=== PATIENT | female | born 1995 | race Hispanic/Latino ===

== ENCOUNTER 2020-08-02 09:29 | Outpatient (CLI) | payer OTHER ==
[2020-08-02 21:00] LABS: SARS-CoV-2 MS2 Positive; SARS-CoV-2 N Gene Negative; SARS-CoV-2 S Gene Negative; SARS-CoV-2 by NAA Not Detected (NotDetected); SARS-CoV-2 orf1ab Negative
== END 2020-08-02 09:30 | disposition home or self-care (01) ==
LOC: EDBD → LABBT 09:29
PROVIDERS: ATTEND Student in an Organized Health Care Education/Training Program
DX: Z01.812 Encounter for preprocedural laboratory examination (principal); Z20.828 Contact with and (suspected) exposure to other viral communicable diseases
CPT/HCPCS: 87635; U0003

== ENCOUNTER 2020-08-04 05:24 | Inpatient (IN) | payer OTHER, SELFPAY ==
[2020-08-04] MEDS ORDERED: hydrALAZINE 20 MG/ML VIAL SLOW IVP PRN ×2 (05:45→11:27)
[2020-08-04] MEDS ORDERED: Butorphanol Tartrate 1 MG/ML VIAL SLOW IVP PRN ×2 (05:45→20:15)
[2020-08-04] MEDS ORDERED: Bicitra 30 ML UDCUP PO PRN (05:45)
[2020-08-04] MEDS ORDERED: Promethazine HCl 25 MG/ML VIAL IM PRN ×3 (05:45→15:14)
[2020-08-04] MEDS ORDERED: Lactated Ringer's 1,000 ML IV SCH (05:45)
[2020-08-04] MEDS ORDERED: Acetaminophen 500 MG TAB PO PRN (05:45)
[2020-08-04] MEDS ORDERED: Ondansetron PF 4 MG/2 ML Vial IVP PRN ×4 (05:45→15:14)
[2020-08-04] MEDS ORDERED: Famotidine/PF 20 mg/2ml Vial SLOW IVP PRN (05:45)
[2020-08-04] MEDS ORDERED: CEFAZOLIN 2 GM in Premix Bag 1 BAG IVPB SCH (05:45)
[2020-08-04 06:16] VITALS: BMI 30.4
--- NOTE | 2020-08-04 06:52 | PDOC.FPROB ---
FMR OB H&P: HPI - History of Present Illness Chief Complaint: scheduled rLTCS for breech presentation at term Indentification: 25 yo at 39.5 wks by 8.4 wk sono History of Present Illness: Patient is a 25 yo at 39.5 wks by 8.4 wk sono who presents for scheduled repeat LTCS today. She is feeling well, no concerns this morning. She denies any vaginal bleeding/discharge, LOF, contractions, N/V, recent illness. Endorses FM. Is taking PNV and Pantoprazole. Primary Care Physician: Sandhya FMR OB H&P: Current - Care : 2 Para: 1001 Gestational age: 39.5 weeks Due date: 08/06/2020 Dating Criteria: LMP c/w 8.4 wk sono - OB Labs Blood type: O RH: positive Antibody Screen: negative HIV: negative RPR: negative HepBsAg: negative Rubella: immune Quad screen: negative Urine drug screen: not done Gonorrhea: negative Chlamydia: negative Pap Smear: NILM 3 hour GTT: passed 2 hr (89/122/124) GBS: negative H&H: 12.8/36.3 on 06/07/2020 Platelets: 210 - First Trimester Ultrasound First trimester: dating U/S at 8.4 wks - Anatomy Survey Anatomy survey: MFM U/S shows isolated choroid plexus cyst and echogenic intracardiac focus, otherwise normal anatomy with no f/u ultrasound indicated FMR OB H&P: History - Past Medical History PMH: GERD - OB History OB History: pLTCS done in [place] in 2016, for failure to dilate - 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 - Family History Family History: Mother with HTN FMR OB H&P: Medications - Current Home Medications: Medication Instructions Recorded Confirmed Type Ondansetron [Ondansetron ODT] 4 mg PO Q6HR PRN 08/04/20 08/04/20 History Pantoprazole Sodium [Protonix] 40 mg PO DAILY 08/04/20 08/04/20 History 21/Iron Fu/Folic Acid 1 tablet PO DAILY 08/04/20 08/04/20 History [ Complete Caplet] Allergies/Adverse Reactions: Allergies Allergy/AdvReac Type Severity Reaction Status Date / Time No Known Allergies Allergy Verified 08/04/20 06:02 FMR OB H&P: ROS - Review of Systems General: denies: fever/chills, weight/appetite/sleep changes, fatigue Eyes: denies: vision changes ENT: denies: nasal congestion, sore throat Cardiovascular: denies: chest pain, palpitation, edema Respiratory: denies: cough, congestion, shortness of breath Gastrointestinal: reports: indigestion. denies: abdominal pain, nausea, vomiting, diarrhea, constipation Genitourinary (Female): reports: contractions. denies: dysuria, vaginal di scharge, vaginal pressure Musculoskeletal: denies: pain, swelling, decrease range of motion Neurologic: denies: numbness, weakness, headache Integumentary: denies: itching, rash Breast: denies: skin changes Hematologic/Lymphatic: denies: prolonged or excessive bleeding Psychological: denies: depression, anxiety FMR OB H&P: Vital Signs - Maternal Vital signs: Vital Signs - First Documented Temp Pulse Resp BP 98.8 F 95 18 124/80 08/04/20 05:45 08/04/20 05:45 08/04/20 05:45 08/04/20 05:45 - Heart Tones Baseline: 140 Variability: moderate Acceleration: present Deceleration: absent Category: category 1 Shell contractions every: 5 min FMR OB H&P: Physical Exam - Physical Exam General: NAD, awake, alert and oriented HEENT: normocephalic and atraumatic, EOMI, MMM, conjunctiva clear, no scleral icterus, grossly normal vision, grossly normal hearing Neck: supple, FROM Chest: non-tender to palpation Heart: RRR, normal S1/S2, no murmurs/rubs/gallops, pulses present, no edema General: CTAB, no respiratory distress, good air movement, no wheezing Abdomen: soft, gravid, non-tender Musculoskeletal: normal gait and station, FROM in all four extremities Neurological: sensation to pain,touch and proprioception grossly normal, no focal deficit Skin: no rash, no jaundice Lymphatic: no unusual bruising or bleeding Psychiatric: intact recent and remote memory, normal mood and affect - Pelvic Exam Vulva: normal hair distribution, no lesions Membranes: intact Presentation: breech, confirmed by beside sono this morning FMR OB H&P: A/P - Problem List (1) Term Current Visit: Yes Status: Acute Code(s): Z34.90 - ENCNTR FOR SUPRVSN OF NORMAL , UNSP, UNSP TRIMESTER (2) History of delivery Current Visit: Yes Status: Acute Code(s): Z98.891 - HISTORY OF UTERINE SCAR FROM PREVIOUS SURGERY (3) Breech presentation of fetus Current Visit: Yes Status: Acute Code(s): O32.1XX0 - MATERNAL CARE FOR BREECH PRESENTATION, UNSP (4) GERD (gastroesophageal reflux disease) Current Visit: Yes Status: Acute Code(s): K21.9 - GASTRO-ESOPHAGEAL REFLUX DISEASE WITHOUT ESOPHAGITIS Disposition: 25 yo @ 39.5 wga presents for scheduled rLTCS: #Term -IOB labs reviewed: wnl, O pos -Pap NILM -genetic screen negative -Anatomy sono w/ [place] 22%. Results demonstrate EIF in LV, choroid plexus cyst in most dependent ventricle and unable to visualize least dependent ventricle. Was referred to [facility] from [facility] on 03/09. No follow up needed, follow up as clinically indicated -2T labs reviewed, GTT passed: 89/122/124 -tDAP 05/24, refused flu -3T labs reviewed, WNLs -Continue PNVs -GBS negative. #Hx of Previous C/S -primary, in [place] in 2016 -Male at 40.0 weeks, scheduled because she was not dilated. Baby was not breech. BW 3.6kg, 53cm. No complications during that c/s #Hx of tobacco use -Previously smoked 1 cig/day, <1 year duration, quit in Sep 2019. #FHx of HTN in mom #GERD -Resolved/Improved with Pantoprazole, may continue #Breech presentation -previously had [facility] discussion at [facility] with patient about options of ECV and induction for TOLAC with a closed cervix vs repeat . All questions answered. She agrees to repeat LTCS this morning Diet: NPO, ice chips okay VTE: low risk Code status: FULL Dispo: Stable, admitted to L&D in preparation for rLTCS this morning. Anticipate LOS >48 hours. Discussion: Date/Time: 08/04/20 0650 This H&P was discussed with Dr. No who agrees with the above documentation and plan. Signature: DO Reinaldo, PGY-2 Addendum - Attending - Attending Attestation Date/Time: 08/04/20 6497 I personally evaluated the patient and discussed the management with Dr. Sanchez I agree with the History, Examination, Assessment and Plan documented above with any addition or exceptions noted below- 25 yo @39.5 weeks here for scheduled repeat C/S due to breech presentation. Denies any complaints. Afebrile VSS. Cat 1 FHTs. Bedside USG confirms brooklynn breech presentation with head in RUQ and spine along maternal left side. A/P: 1) IUP @ 39.5 weeks plan to proceed with repeat C/S. Risks discussed with patient and consent signed.
[2020-08-04] MEDS ORDERED: Morphine PF 10 MG/10 ML VIAL ONE (07:07)
[2020-08-04] MEDS ORDERED: ePHEDrine 50 MG/ML VIAL ONE (07:08)
[2020-08-04] MEDS ORDERED: Oxytocin 10 UNITS/ML VIAL ONE ×2 (07:08→09:15)
[2020-08-04] MEDS ORDERED: Ondansetron PF 4 MG/2 ML Vial ONE (07:08)
[2020-08-04 07:21] LABS: Hemoglobin 12.4 g/dL (12.0-16.0); Mean Corpuscular Hemoglobin 30.3 pg (27.0-31.0); Mean Corpuscular Volume 86.6 fL (78.0-98.0); Mean Platelet Volume 9.9 fL (7.4-10.4); Platelet Count 146 thou/uL (130-400); RBC Distribution Width 12.4 % (11.5-14.5); White Blood Cell (WBC) Count 6.4 thou/uL (4.8-10.8)
[2020-08-04 07:28] LABS: HBSAg Index 0.22 S/CO (0-0.99); Hep B Surf Ag Non-Reactive S/CO (NonReactive)
[2020-08-04 07:55] LABS: Syphilis Antibody Nonreactive (Nonreactive); Syphilis Antibody Index 0.03 S/CO (<1.00 Non-Reactive)
[2020-08-04] MEDS ORDERED: Promethazine HCl 25 MG SUPP PR PRN (08:05)
[2020-08-04] MEDS ORDERED: diphenhydrAMINE 50 MG/ML VIAL IVP PRN ×2 (08:05→15:14)
[2020-08-04] MEDS ORDERED: Naloxone HCl 0.4 mg/ml Vial IV PRN ×2 (08:05→15:14)
[2020-08-04] MEDS ORDERED: L&D-Morphine 4 MG/ML VIAL SLOW IVP PRN (08:05)
[2020-08-04] MEDS ORDERED: HYDROmorphone 2 MG/ML VIAL SLOW IVP PRN (08:05)
[2020-08-04] MEDS ORDERED: Ondansetron HCl/PF 4 MG/2 ML Vial IVP PRN (08:05)
[2020-08-04] MEDS ORDERED: Meperidine HCl/PF 25 MG/ML VIAL SLOW IVP PRN (08:05)
[2020-08-04] MEDS ORDERED: Naloxone HCl 0.4 mg/ml Vial IVP PRN ×2 (08:05)
[2020-08-04] MEDS ORDERED: PROPOFOL 20 ML ONE (08:07)
[2020-08-04] MEDS ORDERED: Succinylcholine 200 MG/10 ml SYRINGE FS ONE (08:07)
[2020-08-04] MEDS ORDERED: Communication Order-Pharmacy FS SCH ×2 (08:15→15:15)
[2020-08-04] MEDS ORDERED: Ketorolac Tromethamine 30 MG/ML VIAL IVP SCH (08:15)
[2020-08-04] MEDS ORDERED: Fentanyl 100 MCG/2 ML VIAL ONE (09:01)
[2020-08-04] MEDS ORDERED: Ketorolac Tromethamine 30 MG/ML VIAL ONE (10:03)
[2020-08-04] MEDS: Ketorolac Tromethamine 30 MG/ML VIAL IVP PRN ×2 (10:04→20:06)
[2020-08-04] MEDS ORDERED: Meperidine HCl/PF 25 MG/ML VIAL ONE (10:04)
--- NOTE | 2020-08-04 10:33 | PDOC.OPDEL ---
OB Operative/Delivery Note Delivery Dr/Surgeon: Alexus Sanchez DO/Nilay Schneider DO/Sera No MD Pre-Delivery Diagnosis: breech, scheduled section Procedure/Post Delivery Dx: repeat low transverse CS Weeks gestation: 39 (39.5) Anesthesia: other (general) - Findings A Sex: female Weight: 3.642 kg - 1 min: 8 - 5 min: 8 - Additional Findings/Plan Placenta delivered: manual removal findings: low transverse hysterotomy without extension (has vertical skin incision, transverse uterine incision), normal uterus, normal tubes, normal ovaries Estimated blood loss: 611 mL Compilations/Other Findings: Date of Procedure: 08/04/2020, 0800 Resident Surgeon: Alexus Sanchez DO; Nilay Schneider DO Attending Surgeon: Sera No MD Procedure: Repeat low transverse caesarean section Preoperative Diagnosis: 1)Term intrauterine at 39.5 weeks 2)Previous done in [place] in 2016, had vertical skin incision and lower transverse uterine incision 3)GERD Postoperative Diagnosis: 1)Term intrauterine , now delivered 2)Previous LTCS x 2 3)GERD Anesthesia: spinal attempted, converted to general anesthesia Indications: The patient is a 25 year old G2,P1001 female at 39.5 weeks gestation who presents for a repeat scheduled for breech presentation. Procedure in Detail: After risks, benefits, and alternatives were explained to the patient, she gave informed consent. Pre-operative antibiotics included Cefazolin 2 gram IV. The patient was taken to the operating room and spinal anesthesia was initiated. Patient had continued sensation on left side and so was converted to general anesthesia. She was placed in the supine position with a left tilt and prepped and draped in usual sterile fashion. A vertical incision was made with a scalpel through previous scar and carried down to the level of the fascia which was sharply nicked. The fascial cut was extended bilaterally with Arthur sissors. The underlying rectus muscles were bluntly dissected free and retracted laterally. The peritoneum was entered bluntly and retracted manually. Bladder blade was placed. A low transverse incision was made with the scalpel and the uterus was entered in the midline with the scalpel. Clear fluid was seen. The hysterotomy was extended manually. The infant was noted to be breech with presenting part of buttocks. The legs were easily delivered, then arms/shoulders, then head. Mouth and nares were bulb suctioned. Cord clamped and cut and grossly normal female was handed to waiting nurse. Cord blood was obtained. Placenta was manually extracted, found to be intact with 3 vessel cord and discarded. The uterus was externalized and the endometrium was curetted with a dry lap. The bladder blade was replaced and the uterus was closed with a running locking 1-Monocryl suture followed by a running non-locking horizontal mattress 1-Monocryl imbricating suture. Following this hemostasis was noted. The abdomen was irrigated with saline and suctioned free of clots. The uterus was internalized and the hysterotomy was again noted to be hemostatic. The peritoneum was closed with running non-locking 2-0 Chromic suture. The fascia was closed with a running non-locking PDS suture. The subcutaneous tissue was irrigated and a few bleeders were cauterized. At this point a scar revision was performed on previously existing external keloid scar. The subcutaneous tissue was then closed with simple interrupted 2-0 Plain Gut suture. The skin was approximated with jaycee and a wound vac was placed. All counts were correct. The patient tolerated the procedure well and was taken to the recovery room in stable condition. Quantitative Blood Loss: 611 ml Complications: None Specimens: Cord blood sent to lab for blood type Findings: Grossly normal female infant with Apgars of 8 and 8. Grossly normal placenta with 3 vessel cord discarded. Drains: Lozada to gravity draining clear urine Post delivery plan: routine recovery Addendum - Attending - Attending Attestation Date/Time: 08/04/20 1304 I was present, supervised, and assisted with the repeat LCT C/S via vertical skin incision for this 25 yo at 39.5 weeks under general anesthesia due to failed spinal anesthesia. Viable female infant in brooklynn breech presentation delivered atraumatically. Apgars 7/9. QBL 611 mL and mother in stable condition.
[2020-08-04] MEDS ORDERED: Bisacodyl 10 MG SUPP PR PRN (11:27)
[2020-08-04] MEDS ORDERED: diphenhydrAMINE 25 MG CAP PO PRN ×2 (11:27→15:14)
[2020-08-04] MEDS ORDERED: Misoprostol 200 MCG TAB PR PRN (11:27)
[2020-08-04] MEDS ORDERED: Acetaminophen 325 MG TAB PO PRN (11:27)
[2020-08-04] MEDS ORDERED: HYDROcodone/Acetaminophen 5/325 mg Tablet PO PRN (11:27)
[2020-08-04] MEDS ORDERED: Lanolin Ointment 7 GM TUBE TOP PRN (11:27)
[2020-08-04] MEDS ORDERED: NS / Oxytocin 40 units/1000ml 1,000 ML IV SCH (11:27)
[2020-08-04] MEDS ORDERED: Oxytocin 30 UNITS in Sodium Chloride 0.9% 500 ML IVPB SCH (11:45)
--- NOTE | 2020-08-04 13:40 | PDOC.PP ---
Post Progress Note Post Day #: 0 Subjective: Patient is currently feeling well at 4-hour post-op check after rLTCS @ 0818 this morning. QBL from delivery was 611 mL, with an additional 60 mL blood expressed in period. Pain is well controlled currently. Has not attempted PO intake other than ice chips. No flatus yet and has not attempted to ambulate. Wound vac is in place with small amount of blood on pad but otherwise area is clean, dry, and well adhered to skin. Patient has no concerns at this time, would like to try something to eat. PO intake tolerated: no Flatus: no Ambulation: no Vital Signs (12 hours) Temp Pulse Resp BP 08/04/20 05:58 98.8 F 95 18 124/80 08/04/20 05:48 98.8 F 08/04/20 05:45 98.8 F 95 18 124/80 Weight Weight 83.007 kg - Physical Examination General: NAD Cardiovascular: no m/r/g, RRR Respiratory: clear to auscultation bilaterally, non-labored breathing Abdominal: lochia (60 mL), no distention, appropriately TTP Fundus firm & at: umbilicus Extremities: negative homans (B) Skin: CS incision dry & intact (wound vac in place), no rash Perineum: normal, no lochia noted Neurological: no gross focal deficits Psychiatric: A&Ox3, normal affect Result Diagrams: 08/04/20 06:28 Additional Labs: Post Labs Hep Bs Antigen Non-Reactive S/CO (NonReactive) 08/04/20 06:28 Blood Type O POSITIVE 08/04/20 07:22 (1) Term Code(s): Z34.90 - ENCNTR FOR SUPRVSN OF NORMAL , UNSP, UNSP TRIMESTER Status: Acute (2) History of delivery Code(s): Z98.891 - HISTORY OF UTERINE SCAR FROM PREVIOUS SURGERY Status: Acute (3) Breech presentation of fetus Code(s): O32.1XX0 - MATERNAL CARE FOR BREECH PRESENTATION, UNSP Status: Acute Qualifiers: Fetus number: single or unspecified fetus Qualified Code(s): O32.1XX0 - Maternal care for breech presentation, not applicable or unspecified (4) GERD (gastroesophageal reflux disease) Code(s): K21.9 - GASTRO-ESOPHAGEAL REFLUX DISEASE WITHOUT ESOPHAGITIS Status: Acute Qualifiers: Esophagitis presence: without esophagitis Qualified Code(s): K21.9 - Gastro-esophageal reflux disease without esophagitis - Assessment/Plan 25 yo @ 39.5 wga is s/p rLTCS on 08/04/2020 @ 0818 #Term , now delivered -rLTCS on 08/04/2020 @ 0818 due to breech presentation -continue PNVs and iron supplement -GBS negative -AM Hemagram ordered for 08/05 -routine care on unit -Ibuprofen scheduled for pain control, [place] prn for breakthrough pain -wound vac in place -will need to schedule at [facility] for incision check and staple removal #Hx of Previous C/S -primary, in [place] in 2016 -scar revision performed during during this hospital stay #Hx of tobacco use -Previously smoked 1 cig/day, <1 year duration, quit in Sep 2019. #FHx of HTN in mom #GERD -Resolved/Improved with Pantoprazole, may continue #Breech presentation -as above Diet: NPO, ice chips okay, nurse advance as tolerated VTE: low risk Code status: FULL Dispo: Stable, admitted to L&D and anticipate transition over to womens/ob/gyn unit this afternoon. Anticipate discharge in 48 hours.
[2020-08-04] MEDS ORDERED: diphenhydrAMINE 50 MG/ML VIAL IM PRN (15:14)
[2020-08-04] MEDS ORDERED: Zolpidem Tartrate 5 MG TAB PO PRN (15:14)
[2020-08-04] MEDS ORDERED: fentaNYL Citrate/PF 2,000 MCG in Sodium Chloride 0.9% 60 ML IV PRN (15:30)
[2020-08-04] MEDS ORDERED: Sodium Chloride 0.9% 10 ML ONE (19:59)
[2020-08-04] MEDS: Ibuprofen 800 MG TAB PO SCH (20:02)
[2020-08-05] MEDS: Ferrous Sulfate 325 MG TAB PO SCH ×3 (00:58→20:20)
[2020-08-05] MEDS: Ketorolac Tromethamine 30 MG/ML VIAL IVP PRN ×2 (02:30→10:02)
[2020-08-05] MEDS: Ibuprofen 800 MG TAB PO SCH ×2 (03:45→15:56)
[2020-08-05 06:40] LABS: Hemoglobin 10.7 g/dL (12.0-16.0); Mean Corpuscular Hemoglobin 30.1 pg (27.0-31.0); Mean Corpuscular Volume 88.3 fL (78.0-98.0); Mean Platelet Volume 9.4 fL (7.4-10.4); Platelet Count 124 thou/uL (130-400); RBC Distribution Width 12.3 % (11.5-14.5); Red Blood Cell (RBC) Count 3.55 mill/uL (4.20-5.40); White Blood Cell (WBC) Count 8.1 thou/uL (4.8-10.8)
--- NOTE | 2020-08-05 08:08 | PDOC.PP ---
Post Progress Note Post Day #: 1 Subjective: Feeling well this morning. Was able to eat dinner last night. Has passed flatus 2-3 times. Has not attempted to ambulate yet. Wants to try to pump for breast feeding. called [facility] yesterday to set up appointment for follow up. Currently good pain control using LIFE ADVISOR pump. PO intake tolerated: yes Flatus: yes Ambulation: no Vital Signs (12 hours) Temp Pulse Resp BP Pulse Ox 08/05/20 07:05 98.1 F 87 16 119/73 97 08/05/20 04:00 98.2 F 84 15 118/62 08/04/20 23:50 98.4 F 78 16 120/72 Weight Weight 83.007 kg - Physical Examination General: NAD Cardiovascular: no m/r/g, RRR Respiratory: clear to auscultation bilaterally, non-labored breathing Abdominal: + bowel sounds, lochia (minimal), no distention, appropriately TTP Fundus firm & at: umbilicus Extremities: negative homans (B) Skin: CS incision dry & intact (wound vac in place with no apparent drainage), no rash Neurological: no gross focal deficits Psychiatric: A&Ox3, normal affect Result Diagrams: 08/05/20 06:14 Additional Labs: Post Labs Hep Bs Antigen Non-Reactive S/CO (NonReactive) 08/04/20 06:28 Blood Type O POSITIVE 08/04/20 07:22 (1) Term Code(s): Z34.90 - ENCNTR FOR SUPRVSN OF NORMAL , UNSP, UNSP TRIMESTER Status: Acute (2) History of delivery Code(s): Z98.891 - HISTORY OF UTERINE SCAR FROM PREVIOUS SURGERY Status: Acute (3) Breech presentation of fetus Code(s): O32.1XX0 - MATERNAL CARE FOR BREECH PRESENTATION, UNSP Status: Acute Qualifiers: Fetus number: single or unspecified fetus Qualified Code(s): O32.1XX0 - Maternal care for breech presentation, not applicable or unspecified (4) GERD (gastroesophageal reflux disease) Code(s): K21.9 - GASTRO-ESOPHAGEAL REFLUX DISEASE WITHOUT ESOPHAGITIS Status: Acute Qualifiers: Esophagitis presence: without esophagitis Qualified Code(s): K21.9 - Gastro-esophageal reflux disease without esophagitis - Assessment/Plan 25 yo @ 39.5 wga is s/p rLTCS on 08/04/2020 @ 0818 #Term , now delivered -rLTCS on 08/04/2020 @ 0818 due to breech presentation -continue PNVs and iron supplement -GBS negative -AM Hemagram 10.7/31.3 -QBL 721 mL at 24 hours -routine care on unit -currently LIFE ADVISOR pump for pain control, discontinued this morning by anesthesia -transition to Ibuprofen scheduled for pain control, [place] prn for breakthrough pain -wound vac in place -will need to schedule at [facility] in [facility] week for incision check and staple removal -given written Rx for breast pump #Hx of Previous C/S -primary, in [place] in 2016 -scar revision performed during during this hospital stay #Hx of tobacco use -Previously smoked 1 cig/day, <1 year duration, quit in Sep 2019. #FHx of HTN in mom #GERD -Resolved/Improved with Pantoprazole, may continue #Breech presentation -as above Diet: Regular VTE: low risk Code status: FULL Dispo: Stable, admitted to inpatient on Women's/Natural Resource Officer unit. Anticipate discharge tomorrow. Addendum - Attending - Attending Attestation Date/Time: 08/05/20 1410 I personally evaluated the patient and discussed the management with Dr. Sanchez I agree with the History, Examination, Assessment and Plan documented above with any addition or exceptions noted below - Patient wihtout complaints. Pain well controlled. Afebrile VSS. A/P: 1) POD#1 s/p R C/S- doing well; continue care. H/H stable. Anticipate d/c home tomorrow.
[2020-08-05] MEDS: Prenatal Vitamin 1 TAB PO SCH (10:01)
[2020-08-05] MEDS: Simethicone Chewable 80 MG TAB PO PRN ×2 (10:01→15:57)
[2020-08-05] MEDS: HYDROcodone/Acetaminophen 5/325 mg Tablet PO PRN ×3 (12:36→20:28)
[2020-08-05] MEDS ORDERED: Senokot 8.6 MG TAB PO PRN (22:22)
[2020-08-06] MEDS: HYDROcodone/Acetaminophen 5/325 mg Tablet PO PRN ×3 (00:06→09:15)
[2020-08-06] MEDS: Ibuprofen 800 MG TAB PO SCH ×3 (00:07→09:17)
--- NOTE | 2020-08-06 06:46 | PDOC.PP ---
Post Progress Note Post Day #: 2 Subjective: Patient feeling well this morning. Ready to go home today. Good pain control with PO Ibuprofen and [place]. Has ambulated in hallway. Decided to formula feed exclusively, may try attempting breast pump at home. Has follow up scheduled with [facility]. PO intake tolerated: yes Flatus: yes Ambulation: yes Vital Signs (12 hours) Temp Pulse Resp BP Pulse Ox 08/06/20 05:20 98.3 F 73 18 112/69 08/06/20 00:00 97.7 F 73 18 115/69 08/05/20 20:15 97.9 F 94 18 122/59 L 100 Weight Weight 83.007 kg - Physical Examination General: NAD Cardiovascular: no m/r/g, RRR Respiratory: clear to auscultation bilaterally, non-labored breathing Abdominal: no distention, appropriately TTP Fundus firm & at: umbilicus Extremities: negative homans (B) Skin: CS incision dry & intact (wound vac in place with minimal drainage), no rash Neurological: no gross focal deficits Psychiatric: A&Ox3, normal affect Result Diagrams: 08/05/20 06:14 Additional Labs: Post Labs Hep Bs Antigen Non-Reactive S/CO (NonReactive) 08/04/20 06:28 Blood Type O POSITIVE 08/04/20 07:22 (1) Term Code(s): Z34.90 - ENCNTR FOR SUPRVSN OF NORMAL , UNSP, UNSP TRIMESTER Status: Acute (2) History of delivery Code(s): Z98.891 - HISTORY OF UTERINE SCAR FROM PREVIOUS SURGERY Status: Acute (3) Breech presentation of fetus Code(s): O32.1XX0 - MATERNAL CARE FOR BREECH PRESENTATION, UNSP Status: Acute Qualifiers: Fetus number: single or unspecified fetus Qualified Code(s): O32.1XX0 - Maternal care for breech presentation, not applicable or unspecified (4) GERD (gastroesophageal reflux disease) Code(s): K21.9 - GASTRO-ESOPHAGEAL REFLUX DISEASE WITHOUT ESOPHAGITIS Status: Acute Qualifiers: Esophagitis presence: without esophagitis Qualified Code(s): K21.9 - Gastro-esophageal reflux disease without esophagitis - Assessment/Plan 25 yo @ 39.5 wga is s/p rLTCS on 08/04/2020 @ 0818 #Term , now delivered -rLTCS on 08/04/2020 @ 0818 due to breech presentation -continue PNVs and iron supplement -GBS negative -AM Hemagram 10.7/31.3 -QBL 721 mL at 24 hours -routine care on unit -currently Ibuprofen scheduled for pain control, [place] 5/235 prn for breakthrough pain -wound vac in place -will need to schedule at [facility] in 1 week for incision check and staple removal -given written Rx for breast pump #Hx of Previous C/S -primary, in [place] in 2016 -scar revision performed during during this hospital stay #Hx of tobacco use -Previously smoked 1 cig/day, <1 year duration, quit in Sep 2019. #FHx of HTN in mom #GERD -Resolved/Improved with Pantoprazole, will continue #Breech presentation -as above Diet: Regular VTE: low risk Code status: FULL Dispo: Stable, admitted to inpatient on Women's/Rn Bone Marrow Transplant unit. Anticipate discharge later today. Addendum - Attending - Attending Attestation Date/Time: 08/07/20 0805 I personally evaluated the patient and discussed the management with Dr. Sanchez on 08/06/20 I agree with the History, Examination, Assessment and Plan documented above with any addition or exceptions noted below - Patient without complaints. Afebrile VSS. A/P: 1) POD#2 s/p repeat C/S - doing well. Plan to d/c home today. F[facility]U at [facility] on Sunday.
[2020-08-06] MEDS: Prenatal Vitamin 1 TAB PO SCH (09:14)
[2020-08-06] MEDS: Ferrous Sulfate 325 MG TAB PO SCH (09:17)
[2020-08-06 10:14] VITALS: BP 118/77; TEMP 98.1
== END 2020-08-06 11:25 | disposition home or self-care (01) | DRG 788 ==
LOC: L&D 05:24 → 3SW 18:09
PROVIDERS: ADMIT Emergency Medicine; ATTEND Emergency Medicine
PROC: 10D00Z1 Extraction of Products of Conception, Low, Open Approach (ICD-10-PCS; principal; 2020-08-04)
DX: O32.1XX0 Maternal care for breech presentation, not applicable or unspecified (principal); O34.211 Maternal care for low transverse scar from previous cesarean delivery; K21.9 Gastro-esophageal reflux disease without esophagitis; O99.613 Diseases of the digestive system complicating pregnancy, third trimester; Z3A.39 39 weeks gestation of pregnancy; Z37.0 Single live birth; Z87.891 Personal history of nicotine dependence
CPT/HCPCS: 36415; 51702; 85027; 86780; 86850; 86900; 86901; 87340; J0690; J1885; J2175; J2270; J2405; J2704; J3010; J3490